=== PATIENT | male | born 1975 | race Caucasian/White ===

== ENCOUNTER 2017-08-05 12:01 | Day surgery (SDC) | payer OTHER ==
[2017-08-05] MEDS ORDERED: DIPHENHYDRAMINE 50 MG INJ ×2 (13:42→14:16)
[2017-08-05] MEDS ORDERED: FENTAnyl 50 MCG/ML VIAL (14:15)
[2017-08-05] MEDS ORDERED: MIDAZOLAM 1 MG/ML 2 ML INJ ×2 (14:16)
== END 2017-08-05 17:15 | disposition home or self-care (01) ==
LOC: GIL 12:01
DX: K92.1 Melena (principal); K51.20 Ulcerative (chronic) proctitis without complications
CPT/HCPCS: 45380; 88305